=== PATIENT | male | born 1950 | race Caucasian/White ===

== ENCOUNTER 2020-05-11 09:19 | Outpatient (CLI) | payer MEDICARE, SELFPAY ==
[2020-05-11 10:18] LABS: SARS-CoV-2 Ag Negative (Negative)
== END 2020-05-11 09:20 | disposition home or self-care (01) ==
LOC: CHSLAB 09:24
PROVIDERS: PCP Family Medicine; Visit Provider Nurse Practitioner
DX: Z20.828 Contact with and (suspected) exposure to other viral communicable diseases (principal)
CPT/HCPCS: 87426

== ENCOUNTER 2020-07-09 07:09 | Outpatient (CLI) | payer MEDICARE, SELFPAY ==
[2020-07-10 19:10] LABS: SARS-CoV-2 RNA PCR Negative
== END 2020-07-09 07:10 | disposition home or self-care (01) ==
PROVIDERS: PCP Family Medicine; Visit Provider Family Medicine
DX: Z01.818 Encounter for other preprocedural examination (principal); Z20.822 Contact with and (suspected) exposure to COVID-19
CPT/HCPCS: C9803; U0003; U0005

== ENCOUNTER 2020-07-23 07:03 | Outpatient (CLI) | payer MEDICARE, SELFPAY ==
[2020-07-24 08:28] LABS: SARS-CoV-2 RNA PCR Negative
== END 2020-07-23 07:04 | disposition home or self-care (01) ==
LOC: CHSLAB 07:06
PROVIDERS: PCP Family Medicine; Visit Provider Family Medicine
DX: Z01.818 Encounter for other preprocedural examination (principal); Z20.822 Contact with and (suspected) exposure to COVID-19
CPT/HCPCS: C9803; U0003; U0005